=== PATIENT | male | born 1965 | race Caucasian/White ===

== ENCOUNTER 2017-06-19 13:26 | Emergency (ER) | payer OTHER ==
[~2017-06-19] VITALS: Ht 177.8 cm; Wt 93.0 kg
[~2017-06-19 13:26] MED LIST: CEPH500C3 PO; Z.0.NO CURRENT MEDS
[2017-06-19 13:35] VITALS: BP 146/71; PULSE 80; RESP 16; TEMP 98.9; O2SAT 98
[2017-06-19] MEDS ORDERED: LISI10TA3 PO (14:10)
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
--- NOTE | 2017-06-19 15:08 | RADRPT ---
EXAM DATE/TIME: 06/19/2017 14:52 [facility] COMPARISON: No previous studies available for comparison. INDICATIONS : Right clavicle pain; fall today. MEDICAL HISTORY : None. SURGICAL HISTORY : None. ENCOUNTER: Initial ACUITY: 1 day PAIN SCORE: 4/10 LOCATION: Right clavicle. FINDINGS: 2 views of the right clavicle reveal elevation of the distal clavicle relative to the acromion. There is widening of the coracoclavicular distance which measures 23 mm. No fracture appreciated. Soft tis sues are unremarkable. CONCLUSION: 1. Acromio-clavicular separation. Preet Lin Jr., MD on June 19, 2017 at 15:05 Board Certified Radiologist. This report was verified electronically.
[2017-06-19] MEDS ORDERED: IBUP1TAB7 PO (15:49)
[2017-06-19] MEDS ORDERED: ROBA500T PO (16:07)
== END 2017-06-19 16:15 | disposition home or self-care (01) ==
LOC: PHEFT 13:26
DX: M24.811 Other specific joint derangements of right shoulder, not elsewhere classified (principal); I10 Essential (primary) hypertension; V18.0XXA Pedal cycle driver injured in noncollision transport accident in nontraffic accident, initial encounter; Y93.55 Activity, bike riding; Y92.9 Unspecified place or not applicable
CPT/HCPCS: 73000; 99283